=== PATIENT | male | born 1950 | race Caucasian/White ===

== ENCOUNTER 2019-01-22 10:06 | Emergency (ER) | payer OTHER ==
[~2019-01-22] VITALS: Ht 170.2 cm; Wt 49.4 kg
[2019-01-22] MEDS ORDERED: NS IV 1000 ML 1,000 ML IV SCH (11:13)
[2019-01-22 11:19] LABS: BASOPHILS % (AUTO) 0 % (0-10); EOSINOPHILS # (AUTO) 0.3 10^3/uL (0.0-0.3); EOSINOPHILS % (AUTO) 3 % (0-10); HEMATOCRIT 41 % (40-54); HEMOGLOBIN 13.5 G/DL (13.3-17.7); LYMPHOCYTES # (AUTO) 2.3 X 10^3 (1.0-4.0); LYMPHOCYTES % (AUTO) 21 % (12-44); MEAN CORPUSCULAR HEMOGLOBIN 31 PG (25-34); MEAN CORPUSCULAR HGB CONC 33 G/DL (32-36); MEAN CORPUSCULAR VOLUME 92 FL (80-99); MEAN PLATELET VOLUME 9.3 FL (7.4-10.4); MONOCYTES # (AUTO) 1.4 X 10^3 (0.0-1.0); MONOCYTES % (AUTO) 13 % (0-12); NEUTROPHILS # (AUTO) 7.2 X 10^3 (1.8-7.8); NEUTROPHILS % (AUTO) 64 % (42-75); PLATELET COUNT 269 10^3/uL (130-400); RED CELL DISTRIBUTION WIDTH 14.6 % (10.0-14.5); WHITE BLOOD COUNT 11.2 10^3/uL (4.3-11.0)
[2019-01-22] MEDS ORDERED: OMEP2.5S2 PO (11:20)
[2019-01-22] MEDS ORDERED: CREONC PO (11:20)
[2019-01-22] MEDS ORDERED: METF-399 PO (11:20)
[2019-01-22] MEDS ORDERED: GLIM4TAB PO (11:20)
[2019-01-22] MEDS ORDERED: HYDR4TAB49 PO (11:20)
[2019-01-22] MEDS ORDERED: ASPI-586 PO (11:20)
[2019-01-22] MEDS ORDERED: LISI-556 PO (11:20)
--- NOTE | 2019-01-22 11:22 | ED General ---
General Chief Complaint: Glucose Problems Stated Complaint: LOW BLOOD SUGAR Nursing Triage Note: Pt ambulates to Rm 10 with C/O hypoglycemia. Pt reports his BS was in the 40s this morning. Pt BS on arrival is 85. Pt is A&O x4. Nursing Sepsis Screen: No Definite Risk History of Present Illness Date Seen by Provider: Jan 22, 2019 Time Seen by Provider: 11:05 Initial Comments 69 year old male presents with hypoglycemia. He reports over the last 3-4 days he has been fighting bouts of hypo-and hyperglycemia. He is a type II diabetic but his been taking Levemir 15 units at bedtime for approximately 5-7 years. He was diagnosed with pancreatitis approximately 6 months ago and his weight has gone from 180-110 lbs, with no changes in his medications. He took her metformin 500 mg with dinner last night and his regular Levemir before bedtime. He did not take any of his morning medications today. He reports chronic vomiting related to pancreatitis, he denies any nausea or vomiting at this time. [facility] His blood sugar got too low with 41 this morning, he ate a young and beef burrito, several Rina mini candies, and drink orange juice. His Accu-Chek on admission was 84. Timing/Duration: 3-4 Days Severity: Moderate Associated Systoms: No Chest Pain; Cough (chronic with long-standing history of tobaccoism); No Diaphoresis, No Fever/Chills, No Headaches; Loss of Appetite, Malaise, Nausea/Vomiting; No Rash, No Seizure, No Shortness of Air, No Syncope; Weakness Allergies and Home Medications Allergies Coded Allergies: morphine (Unverified Allergy, Mild, 01/22/19) Home Medications Hydromorphone HCl 4 Mg Tablet, 4 MG PO DAILY PRN, (Reported) Lisinopril 5 Mg Tablet, 5 MG PO DAILY, (Reported) Metformin HCl 1,000 Mg Tablet, 1,000 MG PO BID WITH MEALS, (Reported) Omeprazole Magnesium 2.5 Mg Suspdr.pkt, 2.5 MG PO BID, (Reported) Patient Home Medication List Home Medication List Reviewed: Yes Review of Systems Review of Systems Constitutional: see HPI; No dizziness, No fever; malaise, weakness, weight loss EENTM: see HPI, no symptoms reported Respiratory: no symptoms reported, cough, phlegm (chronic) Cardiovascular: no symptoms reported, see HPI Gastrointestinal: no symptoms reported, see HPI, abdominal pain Genitourinary: no symptoms reported, see HPI Musculoskeletal: no symptoms reported, see HPI Skin: no symptoms reported, see HPI Psychiatric/Neurological: No Symptoms Reported, See HPI Hematologic/Lymphatic: No Symptoms Reported, See HPI Immunological/Allergic: no symptoms reported, see HPI All Other Systems Reviewed Negative Unless Noted: Yes Past Blyanfj-Cgppmf-Dyapvp Hx Past Med/Social Hx: Reviewed Nursing Past Med/Soc Hx Patient Social History Alcohol Use: Rarely Uses Recreational Drug Use: No Smoking Status: Current Everyday Smoker Type Used: Cigarettes Recent Foreign Travel: No Contact w/Someone Who Travel: No Recent Infectious Disease Expo: No Recent Hopitalizations: No Physical Abuse: No Sexual Abuse: No Mistreated: No Fear: No Seasonal Allergies Seasonal Allergies: No Past Medical History Surgeries: Yes (quad heart bypass 2003) Cardiac Respiratory: Yes Asthma, COPD Currently Using CPAP: No Currently Using BIPAP: No Cardiac: Yes Neurological: No Genitourinary: Yes Kidney Stones Gastrointestinal: No Musculoskeletal: No Endocrine: Yes Diabetes, Non-Insulin dep HEENT: No Cancer: No Psychosocial: No Integumentary: No Blood Disorders: No Physical Exam Vital Signs Vital Signs - First Documented 01/22/19 11:04 Temp 96.2 Pulse 91 Resp 20 B/P (MAP) 133/90 (104) Pulse Ox 100 O2 Delivery Room Air Capillary Refill : Less Than 3 Seconds Height, Weight, BMI Height: 5'7.00" Weight: 109lbs. oz. [id number]; BMI Method:Stated General Appearance: No Apparent Distress, Cachetic, Thin Eyes: Bilateral Eye Normal Inspection, Bilateral Eye PERRL, Bilateral Eye EOMI HEENT: PERRL/EOMI, TMs Normal, Normal ENT Inspection, Pharynx Normal, Other (oral mucosa pink and moist. Head normocephalic with symmetric facial movements, no drooping) Neck: Full Range of Motion, Normal Inspection, Non Tender, Supple Respiratory: Chest Non Tender, Lungs Clear, Normal Breath Sounds Cardiovascular: Regular Rate, Rhythm, No JVD, No Murmur, Normal Peripheral Pulses Gastrointestinal: Normal Bowel Sounds, Soft; No Distended, No Guarding, No Mass, No Rebound; Tenderness (generalized) Back: Normal Inspection, No CVA Tenderness, No Vertebral Tenderness Extremity: Normal Capillary Refill, Normal Inspection, Normal Range of Motion, Non Tender, No Calf Tenderness, Pedal Edema (1+, lower extremities) Neurologic/Psychiatric: Alert, Oriented x3, No Motor/Sensory Deficits, Normal Mood/Affect Progress/Results/Core Measures Suspected Sepsis Recent Fever Within 48 Hours: No Infection Criteria Present: None New/Unexplained Altered Menta: No Sepsis Screen: No Definite Risk SIRS Temperature:96.2 Pulse: 91 Respiratory Rate: 20 Laboratory Tests 01/22/19 10:46: White Blood Count 11.2H Blood Pressure 133 /90 Mean: 104 Laboratory Tests 01/22/19 10:46: Creatinine 1.01, Platelet Count 269, Total Bilirubin 0.3 Results/Orders Lab Results Laboratory Tests Test 01/22/19 10:32 01/22/19 10:46 01/22/19 13:30 Range/Units Glucometer 85 248 H 70-110 MG/DL White Blood Count 11.2 H 4.3-11.0 10^3/uL Red Blood Count 4.40 4.35-5.85 10^6/uL Hemoglobin 13.5 13.3-17.7 G/DL Hematocrit 41 40-54 % Mean Corpuscular Volume 92 80-99 FL Mean Corpuscular Hemoglobin 31 25-34 PG Mean Corpuscular Hemoglobin Concent 33 32-36 G/DL Red Cell Distribution Width 14.6 H 10.0-14.5 % Platelet Count 269 130-400 10^3/uL Mean Platelet Volume 9.3 7.4-10.4 FL Neutrophils (%) (Auto) 64 42-75 % Lymphocytes (%) (Auto) 21 12-44 % Monocytes (%) (Auto) 13 H 0-12 % Eosinophils (%) (Auto) 3 0-10 % Basophils (%) (Auto) 0 0-10 % Neutrophils # (Auto) 7.2 1.8-7.8 X 10^3 Lymphocytes # (Auto) 2.3 1.0-4.0 X 10^3 Monocytes # (Auto) 1.4 H 0.0-1.0 X 10^3 Eosinophils # (Auto) 0.3 0.0-0.3 10^3/uL Basophils # (Auto) 0.0 0.0-0.1 10^3/uL Sodium Level 136 135-145 MMOL/L Potassium Level 4.1 3.6-5.0 MMOL/L Chloride Level 102 98-107 MMOL/L Carbon Dioxide Level 30 21-32 MMOL/L Anion Gap 4 L 5-14 MMOL/L Blood Urea Nitrogen 10 7-18 MG/DL Creatinine 1.01 0.60-1.30 MG/DL Estimat Glomerular Filtration Rate > 60 BUN/Creatinine Ratio 10 Glucose Level 121 H 70-105 MG/DL Calcium Level 8.0 L 8.5-10.1 MG/DL Corrected Calcium 9.0 8.5-10.1 MG/DL Total Bilirubin 0.3 0.1-1.0 MG/DL Aspartate Amino Transf (AST/SGOT) 57 H 5-34 U/L Alanine Aminotransferase (ALT/SGPT) 53 0-55 U/L Alkaline Phosphatase 136 40-136 U/L Total Protein 5.2 L 6.4-8.2 GM/DL Albumin 2.8 L 3.2-4.5 GM/DL Amylase Level 35 25-125 U/L Lipase 4 L 8-78 U/L TSH [place] Testing 1.78 0.35-4.94 UIU/ML My Orders Orders - CHETAN GILBERT Accucheck Stat ONCE (01/22/19 11:03) Amylase (01/22/19 11:13) Cbc With Automated Diff (01/22/19 11:13) Comprehensive Metabolic Panel (01/22/19 11:13) Lipase (01/22/19 11:13) Thyroid Analyzer (01/22/19 11:13) Ed Iv/Invasive Line Start (01/22/19 11:13) Ns Iv 1000 Ml (Sodium Chloride 0.9%) (01/22/19 11:13) Chest Pa/Lat (2 View) (01/22/19 11:24) Accucheck Stat ONCE (01/22/19 13:26) Vital Signs/I&O 01/22/19 01/22/19 11:04 13:44 Temp 96.2 96.2 Pulse 91 86 Resp 20 18 B/P (MAP) 133/90 (104) 125/86 (99) Pulse Ox 100 100 O2 Delivery Room Air Room Air Capillary Refill : Less Than 3 Seconds Blood Pressure Mean: 104 Point of Care Testing Finger Stick Blood Glucose: 85 Blood Glucose Action Taken: A Jerry notified Progress Note : Time: 11:05 Progress Note Patient seen and evaluated, will obtain labs, chest x-ray and provide normal saline 1 L per IV. Will monitor glucose closely and give dextrose if needed. 1200 patient denies any new complaints, labs essentially been normal. IV has infused half of fluid. 1300 IV fluids infusing. No complaints. 1330 Accu-Chek 248. He has been unable to provide a urine sample, will cancel that order. Discharge instructions and return precautions have been reviewed with the patient and family. All questions answered. Diagnostic Imaging Diagonstic Imaging: Xray Plain Films/CT/US/NM/MRI: chest Comments NAME: SHERIN JOAQUIN [facility] REC#: [id number] PT STATUS: REG ER : 1950 PHYSICIAN: CHETAN GILBERT ADMIT DATE: 01/22/19/ER Draft Date of Exam:01/22/19 CHEST PA/LAT (2 VIEW) INDICATION: Hypoglycemia. TIME OF EXAM: 11:37 a.m. COMPARISON: No prior studies are available for comparison. FINDINGS: Changes of median sternotomy and CABG are noted. Calcified nodule in the left base is noted consistent with a granuloma. No infiltrates are seen. There is no effusion or pneumothorax. IMPRESSION: No acute cardiopulmonary process is detected. Dictated on workstation # [id number] Dict: 01/22/19 1141 Trans: 01/22/19 1147 [id number] Interpreted by: BUDDY JOAQUIN MD Electronically signed by: Reviewed: Reviewed by Me Departure Impression Primary Impression: Hypoglycemia associated with diabetes Disposition: 01 HOME, SELF-CARE Condition: Improved Departure-Patient Inst. Decision time for Depature: 13:25 Patient Instructions: Diabetes Type 2 (DC), Low Blood Sugar, Adult (DC) Add. Discharge Instructions: Stop Levemir, if blood sugars remain greater than 150, then resume Levemir but only 5 Units at bedtime. Continue taking your metformin and glyburide. Follow up with your primary care provider if things are not improving or worsen. Return to emergency department for new, urgent health care needs All discharge instructions reviewed with patient and/or family. Voiced understanding. CHETAN GILBERT Jan 22, 2019 11:22
[2019-01-22 11:33] LABS: ALANINE AMINOTRANSFERASE 53 U/L (0-55); ALBUMIN 2.8 GM/DL (3.2-4.5); ALKALINE PHOSPHATASE 136 U/L (40-136); AMYLASE 35 U/L (25-125); BILIRUBIN,TOTAL 0.3 MG/DL (0.1-1.0); BUN/CREATININE RATIO 10; CARBON DIOXIDE 30 MMOL/L (21-32); CHLORIDE 102 MMOL/L (98-107); CREATININE SERUM 1.01 MG/DL (0.60-1.30); GFR ESTIMATED > 60; GLUCOSE 121 MG/DL (70-105); LIPASE 4 U/L (8-78); POTASSIUM 4.1 MMOL/L (3.6-5.0); SODIUM 136 MMOL/L (135-145); TOTAL PROTEIN 5.2 GM/DL (6.4-8.2)
--- NOTE | 2019-01-22 11:48 | Diagnostic Imaging Report ---
INDICATION: Hypoglycemia. TIME OF EXAM: 11:37 a.m. COMPARISON: No prior studies are available for comparison. FINDINGS: Changes of median sternotomy and CABG are noted. Calcified nodule in the left base is noted consistent with a granuloma. No infiltrates are seen. There is no effusion or pneumothorax. IMPRESSION: No acute cardiopulmonary process is detected. Dictated by: Dictated on workstation # [id number]
[2019-01-22 11:52] LABS: TSH (THYROID ANALYZER) 1.78 UIU/ML (0.35-4.94)
--- NOTE | 2019-01-22 12:15 | NUR ---
This RN assisted pt to a standing position to attempt urination at this time.
[2019-01-22 13:44] VITALS: BP 125/86
== END 2019-01-22 13:44 | disposition home or self-care (01) ==
LOC: ER 10:07
DX: E11.649 Type 2 diabetes mellitus with hypoglycemia without coma (principal); J44.9 Chronic obstructive pulmonary disease, unspecified; F17.210 Nicotine dependence, cigarettes, uncomplicated; Z87.442 Personal history of urinary calculi; Z88.5 Allergy status to narcotic agent; Z79.84 Long term (current) use of oral hypoglycemic drugs; Z95.1 Presence of aortocoronary bypass graft
CPT/HCPCS: 36415; 71046; 80053; 82150; 82962; 83690; 84443; 85025; 96360

== ENCOUNTER 2019-03-16 13:10 | Inpatient (IN) | payer OTHER ==
[2019-03-16] VITALS (8 sets, daily range): BP systolic 83–209; BP diastolic 56–180
[~2019-03-16] VITALS: Ht 165.1 cm; Wt 49.5 kg
[~2019-03-16 13:10] MED LIST: ASPI-586 PO; CREONC PO; GLIM4TAB PO; HYDR4TAB49 PO; LISI-556 PO; METF-399 PO; OMEP2.5S2 PO
[2019-03-16] MEDS ORDERED: LACTATED RINGERS IV PRN (13:30)
--- NOTE | 2019-03-16 13:34 | NUR ---
CONSENT FOR CENTRAL LINE SIGNED
--- NOTE | 2019-03-16 13:35 | NUR ---
DR LOPEZ TO ROOM TO PLACE CENTRAL LINE
[2019-03-16 13:40] LABS: BASOPHILS % (AUTO) 1 % (0-10); EOSINOPHILS % (AUTO) 0 % (0-10); HEMATOCRIT 41 % (40-54); HEMOGLOBIN 13.3 G/DL (13.3-17.7); LYMPHOCYTES % (AUTO) 18 % (12-44); MEAN CORPUSCULAR HEMOGLOBIN 33 PG (25-34); MEAN CORPUSCULAR HGB CONC 32 G/DL (32-36); MEAN CORPUSCULAR VOLUME 102 FL (80-99); MEAN PLATELET VOLUME 10.5 FL (7.4-10.4); MONOCYTES # (AUTO) 0.3 X 10^3 (0.0-1.0); MONOCYTES % (AUTO) 6 % (0-12); NEUTROPHILS % (AUTO) 75 % (42-75); PLATELET COUNT 230 10^3/uL (130-400); RED CELL DISTRIBUTION WIDTH 16.3 % (10.0-14.5); WHITE BLOOD COUNT 5.4 10^3/uL (4.3-11.0)
[2019-03-16 14:01] LABS: BUN/CREATININE RATIO 16; CARBON DIOXIDE 15 MMOL/L (21-32); CHLORIDE 105 MMOL/L (98-107); CREATININE SERUM 1.19 MG/DL (0.60-1.30); POTASSIUM 4.2 MMOL/L (3.6-5.0); SODIUM 140 MMOL/L (135-145)
[2019-03-16 14:02] LABS: ALANINE AMINOTRANSFERASE 54 U/L (0-55); ALBUMIN 2.5 GM/DL (3.2-4.5); ALKALINE PHOSPHATASE 140 U/L (40-136); BILIRUBIN,TOTAL 2.6 MG/DL (0.1-1.0); CALCIUM 7.6 MG/DL (8.5-10.1); GFR ESTIMATED > 60; GLUCOSE 93 MG/DL (70-105); TOTAL PROTEIN 4.8 GM/DL (6.4-8.2)
[2019-03-16] MEDS ORDERED: NOREPINEPHRINE 4 MG/4 ML (LEVOPHED) AMP IV ONE (14:03)
[2019-03-16] MEDS ORDERED: NS (IVPB) 250 ML ONE (14:03)
--- NOTE | 2019-03-16 14:13 | NUR ---
to giana cerda
--- NOTE | 2019-03-16 14:13 | NUR ---
PCXR DONE CENTRAL LINE CLEARED BY DR BOYLE
[2019-03-16] MEDS ORDERED: fentaNYL INJECTION 100 MCG/2 ML AMP IVP STA (14:20)
--- NOTE | 2019-03-16 14:20 | ED General ---
General Chief Complaint: Neurological Problems Stated Complaint: BILAT LEG PAIN Nursing Triage Note: TO ROOM 08 WITH COMPLAINTS OF GENEARLIZED WEAKNESS, PAIN IN BILAT LOWER LEGS, DISCOLORATION IN BILAT LEG, WT LOSS, AND FREQUENT FALLS. Nursing Sepsis Screen: No Definite Risk Source of Information: Patient Exam Limitations: No Limitations History of Present Illness Date Seen by Provider: Mar 16, 2019 Time Seen by Provider: 13:20 Initial Comments Here with report of bilateral leg pain with multiple falls, bilateral leg pain and significant weakness. He has been increasingly sick over the last few days and did not want to come to the hospital. finally insisted today and he relented. He arrives incredibly weak and hypotensive. Breathing okay. Does have significant history of cardiac disease and CABG. [facility] Apparently was recently told that he had aspiration pneumonia. Details of that are limited. Timing/Duration: 2-3 Days, Getting Worse Severity: Moderate, Severe Modifying Factors: improves with Immobilization; worse with Movement Associated Systoms: No Chest Pain; Cough, Fever/Chills; No Loss of Appetite, No Nausea/Vomiting; Shortness of Air, Weakness Allergies and Home Medications Allergies Coded Allergies: morphine (Unverified Allergy, Mild, 01/22/19) Home Medications Hydromorphone HCl 4 Mg Tablet, 4 MG PO DAILY PRN, (Reported) Lisinopril 5 Mg Tablet, 5 MG PO DAILY, (Reported) Metformin HCl 1,000 Mg Tablet, 1,000 MG PO BID WITH MEALS, (Reported) Omeprazole Magnesium 2.5 Mg Suspdr.pkt, 2.5 MG PO BID, (Reported) Patient Home Medication List Home Medication List Reviewed: Yes Review of Systems Review of Systems Constitutional: see HPI, chills, fever, malaise, weakness EENTM: no symptoms reported Respiratory: cough, short of breath Cardiovascular: No chest pain, No edema Gastrointestinal: No abdominal pain, No nausea, No vomiting Genitourinary: no symptoms reported Musculoskeletal: joint pain, muscle pain, muscle stiffness, muscle weakness Skin: change in color; No lesions Psychiatric/Neurological: Denies Headache; Weakness All Other Systems Reviewed Negative Unless Noted: Yes Past Lilcsbi-Qsbtgh-Hgavzg Hx Past Med/Social Hx: Reviewed Nursing Past Med/Soc Hx Patient Social History Alcohol Use: Past History Recreational Drug Use: No Smoking Status: Current Everyday Smoker Type Used: Cigarettes Recent Foreign Travel: No Contact w/Someone Who Travel: No Recent Infectious Disease Expo: No Recent Hopitalizations: No Seasonal Allergies Seasonal Allergies: No Past Medical History Surgeries: Yes (quad heart bypass 2003) Cardiac Respiratory: Yes Asthma, COPD Currently Using CPAP: No Currently Using BIPAP: No Cardiac: Yes Neurological: No Genitourinary: Yes Kidney Stones Gastrointestinal: No Musculoskeletal: No Endocrine: Yes Diabetes, Non-Insulin dep HEENT: No Cancer: No Psychosocial: No Integumentary: No Blood Disorders: No Family Medical History Reviewed Nursing Family Hx No Pertinent Family Hx Physical Exam-Suspected Sepsis Physical Exam Vital Signs Vital Signs - First Documented 03/16/19 13:15 Temp 37.2 Pulse 116 Resp 16 B/P (MAP) 78/50 (59) Capillary Refill : Greater Than 3 Seconds Blood Pressure Mean: 59 Height, Weight, BMI Height: 5'7.00" Weight: 109lbs. oz. 49.189047cz; 18.00 BMI Method:Stated General Appearance: No Apparent Distress, WD/WN HEENT: PERRL/EOMI, Pharynx Normal Neck: Non Tender, Supple Respiratory: Lungs Clear, Normal Breath Sounds Cardiovascular: No Murmur, Tachycardia Gastrointestinal: Non Tender, Soft Back: Decreased Range of Motion; No Vertebral Tenderness Extremity: Slow Capillary Refill (approximately 5 seconds), Other (bilateral hip pain and pelvic pain) Neurologic/Psychiatric: Alert, Oriented x3 Skin: warm/dry, mottled, pallor; No rash, No ulcerations Focused Exam Lactate Level 03/16/19 14:30: Lactic Acid Level 6.38*H Lactic Acid Level Laboratory Tests Test 03/16/19 14:30 Lactic Acid Level 6.38 MMOL/L (0.50-2.00) *H Procedures/Interventions Lumen: triple Central Line Procedure: betadine prep, sterile drapes applied, sterile dressing applied Position: internal jugular (R) Anesthesia: Lidocaine Volume Anesthetic (ccs): 4 Complications: none Post Position: sutured, good blood return, position confirmed w/ CXR Central line placed via ultrasound guidance to the right IJ. Tolerated procedure well with no complications. Post chest x-ray shows central line in good position. No pneumothorax Progress/Results/Core Measures Suspected Sepsis Recent Fever Within 48 Hours: No Infection Criteria Present: Suspected New Infection New/Unexplained Altered Menta: No Sepsis Screen: No Definite Risk SIRS Temperature: Pulse: 116 Respiratory Rate: 16 Laboratory Tests 03/16/19 13:32: White Blood Count 5.4 Blood Pressure 78 /50 Mean: 59 03/16/19 14:30: Lactic Acid Level 6.38*H Laboratory Tests 03/16/19 13:32: Creatinine 1.19, Platelet Count 230, Total Bilirubin 2.6H 03/16/19 15:30: Results/Orders Lab Results Laboratory Tests Test 03/16/19 13:32 03/16/19 14:30 03/16/19 15:30 Range/Units White Blood Count 5.4 4.3-11.0 10^3/uL Red Blood Count 4.07 L 4.35-5.85 10^6/uL Hemoglobin 13.3 13.3-17.7 G/DL Hematocrit 41 40-54 % Mean Corpuscular Volume 102 H 80-99 FL Mean Corpuscular Hemoglobin 33 25-34 PG Mean Corpuscular Hemoglobin Concent 32 32-36 G/DL Red Cell Distribution Width 16.3 H 10.0-14.5 % Platelet Count 230 130-400 10^3/uL Mean Platelet Volume 10.5 H 7.4-10.4 FL Neutrophils (%) (Auto) 75 42-75 % Lymphocytes (%) (Auto) 18 12-44 % Monocytes (%) (Auto) 6 0-12 % Eosinophils (%) (Auto) 0 0-10 % Basophils (%) (Auto) 1 0-10 % Neutrophils # (Auto) 4.0 1.8-7.8 X 10^3 Lymphocytes # (Auto) 1.0 1.0-4.0 X 10^3 Monocytes # (Auto) 0.3 0.0-1.0 X 10^3 Eosinophils # (Auto) 0.0 0.0-0.3 10^3/uL Basophils # (Auto) 0.0 0.0-0.1 10^3/uL Neutrophils % (Manual) 51 % Lymphocytes % (Manual) 21 % Monocytes % (Manual) 3 % Eosinophils % (Manual) 3 % Band Neutrophils 25 % Poikilocytosis MODERATE Stomatocytes MODERATE Sodium Level 140 135-145 MMOL/L Potassium Level 4.2 3.6-5.0 MMOL/L Chloride Level 105 98-107 MMOL/L Carbon Dioxide Level 15 L 21-32 MMOL/L Anion Gap 20 H 5-14 MMOL/L Blood Urea Nitrogen 19 H 7-18 MG/DL Creatinine 1.19 0.60-1.30 MG/DL Estimat Glomerular Filtration Rate > 60 BUN/Creatinine Ratio 16 Glucose Level 93 70-105 MG/DL Calcium Level 7.6 L 8.5-10.1 MG/DL Corrected Calcium 8.8 8.5-10.1 MG/DL Total Bilirubin 2.6 H 0.1-1.0 MG/DL Aspartate Amino Transf (AST/SGOT) 74 H 5-34 U/L Alanine Aminotransferase (ALT/SGPT) 54 0-55 U/L Alkaline Phosphatase 140 H 40-136 U/L Total Protein 4.8 L 6.4-8.2 GM/DL Albumin 2.5 L 3.2-4.5 GM/DL Urine Color YELLOW Urine Clarity CLEAR Urine pH 5 5-9 Urine Specific [place] 1.020 1.016-1.022 Urine Protein 2+ H NEGATIVE Urine Glucose (UA) NEGATIVE NEGATIVE Urine Ketones 1+ H NEGATIVE Urine Nitrite POSITIVE H NEGATIVE Urine Bilirubin 2+ H NEGATIVE Urine Urobilinogen 8 H NORMAL MG/DL Urine Leukocyte Esterase 1+ H NEGATIVE Urine RBC (Auto) 1+ H NEGATIVE Urine RBC RARE /HPF Urine WBC 2-5 /HPF Urine Squamous Epithelial Cells 0-2 /HPF Urine Renal Epithelial Cells 0-2 /HPF Urine Crystals NONE /LPF Urine Bacteria MODERATE H /HPF Urine Casts NONE /LPF Urine Mucus SMALL H /LPF Urine Culture Indicated YES Lactic Acid Level 6.38 *H 0.50-2.00 MMOL/L My Orders Orders - YURIDIA BOYLE MD Cbc With Automated Diff (03/16/19 13:29) Comprehensive Metabolic Panel (03/16/19 13:29) Blood Culture (03/16/19 13:29) Sputum Culture (03/16/19 13:29) Urinalysis (03/16/19 13:29) Urine Culture (03/16/19 13:29) Protime With Inr (03/16/19 13:29) Partial Thromboplastin Time (03/16/19 13:29) Chest 1 View, Ap/Pa Only (03/16/19 13:29) Ed Iv/Invasive Line Start (03/16/19 13:29) Ed Iv/Invasive Line Start (03/16/19 13:29) Vital Signs Adult Sepsis Patie Q15M (03/16/19 13:29) O2 (03/16/19 13:29) Remove Rings In Anticipation O (03/16/19 13:29) Lactic Acid Analyzer (03/16/19 13:29) Lactated Ringers (Lr 1000 Ml Iv Solution (03/16/19 13:30) Norepinephrine (Levophed) (03/16/19 14:03) Ns (Ivpb) (Sodium Chloride 0.9%) (03/16/19 14:03) Pelvis (03/16/19 14:10) Fentanyl Injection (Sublimaze Injection (03/16/19 14:20) Catheter(Urinary) Insert & Ass 03,15 (03/16/19 14:20) Norepinephrine (Levophed) (03/16/19 14:30) Ct Head Wo (03/16/19 14:31) Ekg Tracing (03/16/19 14:42) Manual Differential (03/16/19 13:32) Ceftriaxone For Iv Use (Rocephin For I (03/16/19 15:15) Hydromorphone Injection (Dilaudid Inject (03/16/19 15:30) Medications Given in ED Current Medications Medications Dose Ordered Sig/[place] Route Start Time Stop Time Status Last Admin Dose Admin Ceftriaxone Sodium 1000 mg/ Sterile Water 10 ml @ 200 mls/hr ONCE ONCE IV 03/16/19 15:15 03/16/19 15:17 DC 03/16/19 15:34 200 MLS/HR Hydromorphone HCl 1 mg ONCE ONCE IV 03/16/19 15:30 03/16/19 15:31 DC 03/16/19 15:30 1 MG Lactated Ringer's 1,469.64 ml @ 1,469.64 mls/hr PRN PRN IV 03/16/19 13:30 03/16/19 13:41 1,469.64 MLS/HR Vital Signs/I&O 03/16/19 13:15 Temp 37.2 Pulse 116 Resp 16 B/P (MAP) 78/50 (59) Capillary Refill : Greater Than 3 Seconds Blood Pressure Mean: 59 Progress Note : Progress Note Seen and evaluated. Patient very hypotensive on arrival. Sepsis protocol initiat ed and IV attempts were made. Elected to go directly to Central line placement. Consent signed and on the chart. In the interim they were able to get a line to the left arm and we did initiate the 30 mL/kg bolus of LR which calculates to just under 1500 mL. Anticipate 2 L bolus. 1420: Central line placed and in good position. Fentanyl 25 g IV ordered. We will additionally get CT of the head. We went ahead and initiated Levophed due to persistent hypotension despite fluid challenge that is ongoing. Patient is complaining of significant pain to his upper legs and pelvic area. No acute fractures noted on pelvic x-ray. Pending labs. Anticipate admission to the ICU. 1511: I discussed the case with Dr. Callejas. Patient does have grossly elevated lactic acid greater than 6 and nitrite- positive urinary tract infection. We will initiate Rocephin 1 g IV. Levophed was initiated. He is markedly improved with his blood pressure greater than 90 systolic since. Fentanyl did not touch his pain. Dilaudid 1 mg IV ordered as he is normally on Dilaudid 4 mg when necessary daily. This did greatly improve his comfort. Resting peacefully now. Admit, inpatient status. Patient family agree with plan. 1558: I attest a focused exam at this time. Family did bring to my attention other concerns that he has had significant weight loss over the last year and is not able to gain weight at all. He was a very heavy smoker for many years at 3 packs a day plus. The did mention that there was some concern about throat cancer in the past or she had concern of throat cancer in the past. Either way, patient may need further workup related to possible cancer etiology for his weight loss as his stability improves. She will also discussed this with inpatient team ECG Initial ECG Impression Date: Mar 16, 2019 Initial ECG Impression Time: 12:11 Initial ECG Rate: 124 Initial ECG Rhythm: S.Tach Comment Sinus tachycardia with low voltage. No evidence of ST elevation HI. No previous available for comparison. Interpreted by me. Normal axis noted. Diagnostic Imaging Diagonstic Imaging: CT Plain Films/CT/US/NM/MRI: head Comments NAME: SHERIN JOAQUIN [facility] REC#: [id number] PT STATUS: REG ER : 1950 PHYSICIAN: YURIDIA BOYLE MD ADMIT DATE: 03/16/19/ER Signed Date of Exam: 03/16/19 CT HEAD WO PROCEDURE: CT head without contrast. TECHNIQUE: Multiple contiguous axial images were obtained through the brain without the use of intravenous contrast. Auto Exposure Controls were utilized during the CT exam to meet ALARA standards for radiation dose reduction. INDICATION: Generalized weakness. Frequent falls. FINDINGS: The ventricles are normal in size, shape and position. There is mild cortical atrophy. There is no acute parenchymal hemorrhage, edema or mass. There is no extra-axial mass or hemorrhage. There is no acute bony abnormality. IMPRESSION: No acute abnormality is seen. Dictated by: Dictated on workstation # [id number] Dict: 03/16/19 1505 Trans: 03/16/19 151 Interpreted by: SHERIN BARRIOS MD Electronically signed by: SHERIN BARRIOS MD 03/16/19 151 Diagonstic Imaging: Xray Plain Films/CT/US/NM/MRI: pelvis Comments NAME: SHERIN JOAQUIN MED REC#: [id number] PT STATUS: REG ER : 1950 PHYSICIAN: YURIDIA BOYLE MD ADMIT DATE: 03/16/19/ER Signed Date of Exam: 03/16/19 PELVIS INDICATION: Fall. COMPARISON: None available. FINDINGS: No traumatic diastases in the symphysis pubis or SI joints. No dislocation of the hip. Severe degenerative arthritis of the left hip is present. No acute displaced fracture by radiography. IMPRESSION: No fracture or traumatic malalignment in the pelvis by radiography. Dictated by: Dictated on workstation # [id number] Dict: 03/16/19 1436 Trans: 03/16/19 1526 Interpreted by: FRANKLYN SIDHU MD Electronically signed by: FRANKLYN SIDHU MD 03/16/19 152 Diagonstic Imaging: Xray Plain Films/CT/US/NM/MRI: chest Comments NAME: SHERIN JOAQUIN MED REC#: [id number] PT STATUS: REG ER : 1950 PHYSICIAN: YURIDIA BOYLE MD ADMIT DATE: 03/16/19/ER Signed Date of Exam: 03/16/19 CHEST 1 VIEW, AP/PA ONLY CHEST 1 VIEW, AP/PA ONLY Indication: Generalized weakness. Comparison: 01/22/2019 Findings: Stable calcified pulmonary granuloma in the left lung base. No focal airspace disease in the visualized lungs. Please note that the posterior lower lobes are poorly evaluated by portable radiography. No pleural effusion or pneumothorax. Normal cardiomediastinal silhouette. Right IJ central venous catheter has tip terminating in the lower SVC near the superior cavoatrial junction. Impression: 1. No acute cardiopulmonary process by portable radiography. 2. Well-positioned right IJ central venous catheter. Dictated by: Dictated on workstation # [id number] Dict: 03/16/19 1433 Trans: 03/16/19 1525 Interpreted by: FRANKLYN SIDHU MD Electronically signed by: FRANKLYN SIDHU MD 03/16/19 1525 Reviewed: Reviewed by Wa Departure Communication (Admissions) Time/Spoke to Admitting Phy: 15:11 Impression Primary Impression: Septic shock Disposition: ADMITTED INPATIENT Condition: Critical Admissions Decision to Admit Reason: Admit from ER (General) Decision to Admit/Date: Mar 16, 2019 Time/Decision to Admit Time: 15:11 Departure-Patient Inst. Referrals: NO,LOCAL PHYSICIAN (PCP/Family) Primary Care Physician YURIDIA BOYLE MD Mar 16, 2019 14:20
--- NOTE | 2019-03-16 14:30 | NUR ---
DOMÍNGUEZ CATH PLACED 16F
[2019-03-16] MEDS: NOREPINEPHRINE 4 MG in NS (IVPB) 250 ML IV SCH ×2 (14:33→14:34)
--- NOTE | 2019-03-16 14:37 | Diagnostic Imaging Report ---
CHEST 1 VIEW, AP/PA ONLY Indication: Generalized weakness. Comparison: 01/22/2019 Findings: Stable calcified pulmonary granuloma in the left lung base. No focal airspace disease in the visualized lungs. Please note that the posterior lower lobes are poorly evaluated by portable radiography. No pleural effusion or pneumothorax. Normal cardiomediastinal silhouette. Right IJ central venous catheter has tip terminating in the lower SVC near the superior cavoatrial junction. Impression: 1. No acute cardiopulmonary process by portable radiography. 2. Well-positioned right IJ central venous catheter. Dictated by: Dictated on workstation # [id number]
--- NOTE | 2019-03-16 14:37 | NUR ---
B/P 110/84 HR125 SAO2 100% 2L
--- NOTE | 2019-03-16 14:38 | Diagnostic Imaging Report ---
INDICATION: Fall. COMPARISON: None available. FINDINGS: No traumatic diastases in the symphysis pubis or SI joints. No dislocation of the hip. Severe degenerative arthritis of the left hip is present. No acute displaced fracture by radiography. IMPRESSION: No fracture or traumatic malalignment in the pelvis by radiography. Dictated by: Dictated on workstation # [id number]
[2019-03-16 14:46] LABS: CLARITY,URINE CLEAR; COLOR,URINE YELLOW; GLUCOSE, URINE (UA) NEGATIVE (NEGATIVE); KETONES,URINE 1+ (NEGATIVE); LEUKOCYTE ESTERASE ,URINE 1+ (NEGATIVE); NITRITE,URINE POSITIVE (NEGATIVE); PH,URINE 5 (5-9); PROTEIN,URINE 2+ (NEGATIVE)
[2019-03-16 14:48] LABS: BAND NEUTROPHILS 25 %; EOSINOPHILS % (MANUAL) 3 %; LYMPHOCYTES % (MANUAL) 21 %; MONOCYTES % (MANUAL) 3 %; NEUTROPHILS % (MANUAL) 51 %; POIKILOCYTOSIS MODERATE
[2019-03-16 14:49] LABS: STOMATOCYTES MODERATE
--- NOTE | 2019-03-16 14:53 | NUR ---
TO CT ACCOMPIED BY HUGH MYERS
--- NOTE | 2019-03-16 15:06 | Diagnostic Imaging Report ---
PROCEDURE: CT head without contrast. TECHNIQUE: Multiple contiguous axial images were obtained through the brain without the use of intravenous contrast. Auto Exposure Controls were utilized during the CT exam to meet ALARA standards for radiation dose reduction. INDICATION: Generalized weakness. Frequent falls. FINDINGS: The ventricles are normal in size, shape and position. There is mild cortical atrophy. There is no acute parenchymal hemorrhage, edema or mass. There is no extra-axial mass or hemorrhage. There is no acute bony abnormality. IMPRESSION: No acute abnormality is seen. Dictated by: Dictated on workstation # [id number]
--- NOTE | 2019-03-16 15:07 | NUR ---
BACK FROM CT
[2019-03-16 15:09] LABS: RBC,URINE RARE /HPF
[2019-03-16 15:10] LABS: BACTERIA,URINE MODERATE /HPF; RENAL EPITHELIAL CELLS,URINE 0-2 /HPF; SQUAMOUS EPITHELIAL CELL,UR 0-2 /HPF
[2019-03-16] MEDS ORDERED: cefTRIAXone FOR IV USE 1,000 MG in WATER (STERILE) FOR INJECTION 10 ML IV ONE (15:15)
[2019-03-16] MEDS ORDERED: HYDROmorphone 2 MG/ML VIAL (DILAUDID) IV ONE (15:30)
--- NOTE | 2019-03-16 15:34 | NUR ---
1ST LITER OF LR IN
--- NOTE | 2019-03-16 15:44 | NUR ---
MONITOR SHOWS ST HR 117 SAO2 100% 3LNC 123/98
[2019-03-16 15:47] LABS: INR 1.6 (0.8-1.4); PROTHROMBIN TIME PATIENT 20.1 SEC (12.2-14.7)
--- NOTE | 2019-03-16 15:58 | NUR ---
CALLED TO GIVE REPORT NURSE DID NOT ANSWER PHONE
--- NOTE | 2019-03-16 15:59 | NUR ---
HR 117 B/P 103 60
[2019-03-16] MEDS ORDERED: NOREPINEPHRINE 4 MG in NS (IVPB) 250 ML IV SCH (16:29)
[2019-03-16] MEDS ORDERED: EPINEPHrine 1 MG INJECTION 2 MG in NS (IVPB) 250 ML IV SCH (16:30)
[2019-03-16] MEDS: LACTATED RINGERS 1,000 ML IV SCH ×3 (16:40→23:23)
[2019-03-16] MEDS: VASOPRESSIN INJECTION 20 UNIT in NORMAL SALINE 100 ML IV SCH ×2 (16:40→21:33)
[2019-03-16] MEDS ORDERED: CATHETER FLUSH 10 ML SYR IV PRN (16:45)
[2019-03-16] MEDS ORDERED: ONDANSETRON 4 MG/2 ML (SDV) Z0FRAN IV PRN (16:45)
[2019-03-16] MEDS ORDERED: HYDROmorphone 2 MG/ML VIAL (DILAUDID) IV PRN (16:45)
[2019-03-16] MEDS ORDERED: ACETAMINOPHEN 120 MG SUPP (TYLENOL) PR ONE (17:00)
[2019-03-16] MEDS ORDERED: ACETAMINOPHEN 325 MG SUPP (TYLENOL) PR PRN (17:00)
[2019-03-16] MEDS ORDERED: ACETAMINOPHEN 650 MG SUPP (TYLENOL) ONE (17:04)
[2019-03-16 17:09] LABS: ABG BASE EXCESS -6.3 MMOL/L (-2.5-2.5); ABG OXYGEN SATURATION 94 % (94-100); ABG PCO2 31 MMHG (35-45); ABG PH 7.38 (7.37-7.43); ABG PO2 73 MMHG (79-93); ABG TCO2 18.5 MMOL/L (21.0-31.0); ALLENS TEST YES-POS; INSPIRED O2 3 L; PATIENT TEMP 37.9; VENTILATOR NO
[2019-03-16] MEDS: LACTATED RINGERS 500 ML IV SCH ×2 (17:30→19:35)
--- NOTE | 2019-03-16 17:30 | NUR ---
RECEIVED ORDER FROM [facility] TO SWITCH LEVOPHED TO NEOSINEPHRINE. DR. FLORES IN ROOM, STATED TO CONTINUE ON LEVOPHED.
--- NOTE | 2019-03-16 17:32 | History & Physical-Hospitalist ---
History of Present Illness HPI/Chief Complaint Pt is 69yoCM who presented to the ER due to leg pain and weakness. He is quite lethargic and responds only to painful stimuli. He is unable to provide me any history. His who is an LEAD PROGRAMMER ANALYST, daughter, and grandson are at the bedside to provide the history. reports he has not been feeling well for the psat few days but when she got home at 330AM this morning she noticed he was very weak, febrile, and overall looked worse. She reports it took both herself and her grandson to move him today and he had pretty significant pain. She checked his vitals and he had a temperature of 100.4, a pulse of 47, and his BP was 104/60. He did take him BP medicine this morning. She has noticed mottled in his feet but notices now that that has spread to his knees. This acute illness is in the setting of him lose weight over the past few months and undergoing a workup for aspiration and a mass on his neck. He also has chronic pancreatitis. He had not complained of abdominal pain to her. She has noticed looser carol colored stools but today thought it was more formed. Source: patient Date Seen 03/16/19 Attending Physician Alondra Callejas MD PCP No,Local Physician Referring Physician Date of Admission Mar 16, 2019 at 15:53 Home Medications & Allergies Home Medications Reviewed patient Home Medication Reconciliation performed by pharmacy medication reconciliations sterilization technician and/or nursing. Patients Allergies have been reviewed. Allergies Allergies Coded Allergies morphine (Unverified Allergy, Mild, 01/22/19) Past Oksxycf-Ogcpfu-Jrjiqx Hx Past Med/Social Hx: Reviewed Nursing Past Med/Soc Hx Patient Social History Marrital Status: Alcohol Use: Past History Recreational Drug Use: No Smoking Status: Current Everyday Smoker Type Used: Cigarettes Recent Foreign Travel: No Contact w/other who traveled: No Recent Hopitalizations: No Recent Infectious Disease Expo: No Immunizations Up To Date Date of Pneumonia Vaccine: Nov 17, 2016 Date of Influenza Vaccine: Feb 24, 2019 Seasonal Allergies Seasonal Allergies: No Past Medical History Surgeries: Cardiac, CABG, Coronary Stent, Pancreatic Respiratory: COPD, Pneumonia Currently Using CPAP: No Currently Using BIPAP: No Cardiac: Chronic Edema/Swelling, Coronary Artery Disease, Hypertension Genitourinary: Kidney Stones Musculoskeletal: Chronic Back Pain Endocrine: Diabetes, Non-Insulin dep History of Blood Disorders: No Family History Reviewed Nursing Family Hx No Pertinent Family Hx Review of Systems ROS-Unable to Obtain: due to lethargy, see HPI for history from Physical Exam Physical Exam Vital Signs Vital Signs - First Documented 03/16/19 03/16/19 13:15 16:27 Temp 37.2 Pulse 116 Resp 16 B/P (MAP) 78/50 (59) Pulse Ox 100 O2 Delivery Nasal Cannula O2 Flow Rate 3.00 Capillary Refill : Greater Than 3 Seconds Height, Weight, BMI Height: 5'7.00" Weight: 109lbs. oz. 49.236167oh; 18.00 BMI Method:Stated General Appearance: Chronically ill, Cachetic, Moderate Distress HEENT: No Scleral Icterus (L), No Scleral Icterus (R); Other (dry mucus membranes) Neck: Non Tender; No Lymphadenopathy (L), No Lymphadenopathy (R); Other (central line in place on right) Respiratory: Chest Non Tender, Rhonci (right base); No Wheezing; Other (tachypnea ) Cardiovascular: No JVD, No Murmur, Tachycardia Gastrointestinal: Normal Bowel Sounds; No Distended; Guarding; No Rebound; Tenderness (diffuse) Genital/Rectal: Other (ceja in place, scant urine) Extremity: Pedal Edema, Slow Capillary Refill, Swelling (2+ to just below calves) Neurologic/Psychiatric: Other (arouses to pain and speaks, otherwise will open eyes to verbal command but lethargic) Skin: Mottled; No Petechia, No Rash; Other (warm to touch) Results Results/Procedures Labs Laboratory Tests 03/16/19 13:32 Patient resulted labs reviewed. Imaging: Reviewed Imaging Report Assessment/Plan Admission Diagnosis Septic Shock Admission Status: Inpatient Order (span 2 midnights) Reason for Inpatient Admission: On pressors Assessment and Plan Septic Shock UTI Febrile, tachycardia with Lactic acidosis Received 30cc/kg bolus Focus exam done Cultures obtained Continue Rocephin Continue on Levophed CAD s/p CABG No chest pain On ASA, Metoprolol at home Echo COPD Currently off inhalers Pulm consulted, appreciate recs HTN Hold home meds Chronic Pancreatitis Chronic Pain Creon when can PO IV Dilaudid for pain Discussed with family need to balance sedation with respiratory status if he remains full code Discussed goals of care with family. They would like to continue with Full Code status per his wishes. is tearful and acknowledging gravity of illness. Critical Care Critically Ill Patient Diagnosis/Problems Diagnosis/Problems (1) CAD (coronary artery disease) Qualifiers: Coronary Disease-Associated Artery/Lesion type: bypass graft [place] vs. transplanted heart: [place] heart Associated angina: without angina Qualified Codes: I25.810 - Atherosclerosis of coronary artery bypass graft(s) without angina pectoris (2) COPD (chronic obstructive pulmonary disease) (3) Counseling regarding end of life decision making (4) Essential (primary) hypertension (5) Non-insulin dependent type 2 diabetes mellitus (6) Tobacco abuse (7) UTI (urinary tract infection) (8) Septic shock Status: Acute (9) Chronic pancreatitis (10) Chronic pain ALONDRA CALLEJAS MD Mar 16, 2019 17:32
[2019-03-16] MEDS ORDERED: NS IV 1000 ML 1,000 ML IV SCH (18:15)
[2019-03-16] MEDS ORDERED: NS IV 1000 ML 1,000 ML ONE (19:36)
[2019-03-16] MEDS ORDERED: LACTATED RINGERS 500 ML IV ONE (20:15)
[2019-03-16] MEDS: PHENYLEPHRINE 10 MG/NS 250 ML IV SCH ×4 (20:46→22:36)
[2019-03-16] MEDS ORDERED: NS (IVPB) 100 ML ONE (21:14)
[2019-03-16] MEDS ORDERED: PHENYLEPHRINE INJ 10 MG/ML (FOR DRIP KITS ONLY) ONE ×3 (23:40→23:45)
[2019-03-17] VITALS (12 sets, daily range): BP systolic 81–122; BP diastolic 52–96
--- NOTE | 2019-03-17 00:23 | NUR ---
UPDATED E-ICU OF PT URINE OUTPUT 15-25ML/HR, INCREASED PERIPHERAL EDEMA, WET COUGH AND PT REPORTING HAVING DIFFICULTY BREATHING. ALSO INQUIRED ABOUT PAIN MEDICATION AND HYPOTENSION. SEE ORDER HX
[2019-03-17] MEDS: LACTATED RINGERS 1,000 ML IV SCH ×2 (00:42→07:23)
[2019-03-17] MEDS: HYDROmorphone 2 MG/ML VIAL (DILAUDID) IV PRN ×3 (00:42→06:10)
[2019-03-17] MEDS: PHENYLEPHRINE 10 MG/NS 250 ML IV SCH ×10 (01:10→04:53)
[2019-03-17] MEDS ORDERED: RT-ALBUTEROL/IPRATROPIUM 3 ML (DUONEB) VIAL ONE (01:16)
[2019-03-17] MEDS: RT-ALBUTEROL/IPRATROPIUM 3 ML (DUONEB) VIAL IH SCH ×4 (02:10→10:33)
[2019-03-17] MEDS ORDERED: NOREPINEPHRINE 4 MG in NS (IVPB) 250 ML IV SCH (02:45)
[2019-03-17] MEDS ORDERED: NS (IVPB) 250 ML ONE ×3 (03:09→05:07)
[2019-03-17 03:33] LABS: BASOPHILS % (AUTO) 0 % (0-10); EOSINOPHILS % (AUTO) 0 % (0-10); HEMATOCRIT 29 % (40-54); HEMOGLOBIN 9.6 G/DL (13.3-17.7); LYMPHOCYTES # (AUTO) 0.6 X 10^3 (1.0-4.0); LYMPHOCYTES % (AUTO) 5 % (12-44); MEAN CORPUSCULAR HEMOGLOBIN 32 PG (25-34); MEAN CORPUSCULAR HGB CONC 34 G/DL (32-36); MEAN CORPUSCULAR VOLUME 95 FL (80-99); MEAN PLATELET VOLUME 10.2 FL (7.4-10.4); MONOCYTES # (AUTO) 0.5 X 10^3 (0.0-1.0); MONOCYTES % (AUTO) 4 % (0-12); NEUTROPHILS # (AUTO) 10.6 X 10^3 (1.8-7.8); NEUTROPHILS % (AUTO) 91 % (42-75); PLATELET COUNT 171 10^3/uL (130-400); RED CELL DISTRIBUTION WIDTH 15.6 % (10.0-14.5); WHITE BLOOD COUNT 11.7 10^3/uL (4.3-11.0)
[2019-03-17] MEDS ORDERED: DEXTROSE 50% 50 ML (IMS) SYR IV ONE (04:00)
[2019-03-17 04:02] LABS: ALANINE AMINOTRANSFERASE 37 U/L (0-55); ALBUMIN 1.7 GM/DL (3.2-4.5); ALKALINE PHOSPHATASE 86 U/L (40-136); BILIRUBIN,TOTAL 1.8 MG/DL (0.1-1.0); BUN/CREATININE RATIO 18; CALCIUM 6.7 MG/DL (8.5-10.1); CARBON DIOXIDE 17 MMOL/L (21-32); CHLORIDE 109 MMOL/L (98-107); CREATININE SERUM 1.05 MG/DL (0.60-1.30); GFR ESTIMATED > 60; POTASSIUM 3.5 MMOL/L (3.6-5.0); SODIUM 140 MMOL/L (135-145); TOTAL PROTEIN 3.2 GM/DL (6.4-8.2)
[2019-03-17 04:05] LABS: GLUCOSE 49 MG/DL (70-105); MAGNESIUM 0.9 MG/DL (1.6-2.4)
[2019-03-17] MEDS ORDERED: DEXTROSE 50% 50 ML (IMS) SYR ONE (04:05)
[2019-03-17] MEDS: MAGNESIUM 1 GM/D5W 100 ML IVPB IV SCH ×2 (04:45→05:45)
[2019-03-17] MEDS: POTASSIUM CL 10 MEQ/50 ML IVPB (PRE-MIX) IV SCH ×2 (04:45→05:45)
[2019-03-17 05:00] LABS: BILIRUBIN,URINE 2+ (NEGATIVE)
[2019-03-17] MEDS ORDERED: NS (IVPB) 100 ML ONE ×2 (05:05→06:17)
[2019-03-17] MEDS: VASOPRESSIN INJECTION 20 UNIT in NORMAL SALINE 100 ML IV SCH (05:13)
--- NOTE | 2019-03-17 05:42 | Pulmonary Consultation ---
History of Present Illness History of Present Illness Date of Consultation 03/17/19 05:37 Time Seen by Provider: 05:39 Date of Admission History of Present Illness 69yo Pt is 69yoCM who presented to the ER due to leg pain and weakness. He is quite lethargic and responds only to painful stimuli. He is unable to provide me any history. His who is an HEAD RESIDENT, daughter, and grandson are at the bedside to provide the history. reports he has not been feeling well for the psat few days but when she got home at 330AM this morning she noticed he was very weak, febrile, and overall looked worse. She reports it took both herself and her grandson to move him today and he had pretty significant pain. She checked his vitals and he had a temperature of 100.4, a pulse of 47, and his BP was 104/60. He did take him BP medicine this morning. She has noticed mottled in his feet but notices now that that has spread to his knees. This acute illness is in the setting of him lose weight over the past few months and undergoing a workup for aspiration and a mass on his neck. He also has chronic pancreatitis. He had not complained of abdominal pain to her. She has noticed looser carol colored stools but today thought it was more formed. Allergies and Home Medications Allergies Coded Allergies: morphine (Unverified Allergy, Mild, takes Hydromorphone at home, 03/17/19) Home Medications Hydromorphone HCl 4 Mg Tablet, 4 MG PO DAILY PRN, (Reported) Lisinopril 5 Mg Tablet, 5 MG PO DAILY, (Reported) Metformin HCl 1,000 Mg Tablet, 1,000 MG PO BID WITH MEALS, (Reported) Omeprazole Magnesium 2.5 Mg Suspdr.pkt, 2.5 MG PO BID, (Reported) Past Tgccxbe-Peevjn-Njbzwn Hx Past Med/Social Hx: Reviewed Nursing Past Med/Soc Hx Patient Social History Alcohol Use: Past History Recreational Drug Use: No Smoking Status: Current Everyday Smoker Type Used: Cigarettes Recent Foreign Travel: No Contact w/Someone Who Travel: No Recent Infectious Disease Expo: No Recent Hopitalizations: No Immunizations Up To Date Date of Pneumonia Vaccine: Nov 17, 2016 Date of Influenza Vaccine: Feb 24, 2019 Seasonal Allergies Seasonal Allergies: No Past Medical History Surgeries: Yes (quad heart bypass 2003) Cardiac, CABG, Coronary Stent, Pancreatic Respiratory: Yes Asthma, COPD Currently Using CPAP: No Currently Using BIPAP: No Cardiac: Yes Chronic Edema/Swelling, Coronary Artery Disease, Hypertension Neurological: No Genitourinary: Yes Kidney Stones Gastrointestinal: No Musculoskeletal: No Chronic Back Pain Endocrine: Yes Diabetes, Non-Insulin dep HEENT: No Cancer: No Psychosocial: No Integumentary: No Blood Disorders: No Family Medical History Reviewed Nursing Family Hx No Pertinent Family Hx Sepsis Event Evaluation Height, Weight, BMI Height: 5'7.00" Weight: 109lbs. oz. 49.972381cq; 18.00 BMI Method:Stated Exam Exam Vital Signs Date Time Temp Pulse Resp B/P (MAP) Pulse Ox O2 Delivery O2 Flow Rate FiO2 03/17/19 04:00 Nasal Cannula 3.00 03/17/19 03:38 36.7 03/17/19 02:00 105 16 81/60 (67) Nasal Cannula 3.00 03/17/19 01:25 Nasal Cannula 2.00 03/17/19 01:03 101 03/17/19 01:00 99 18 90/69 (76) Nasal Cannula 3.00 03/17/19 00:15 120 28 98/81 (87) Nasal Cannula 3.00 03/17/19 00:00 Nasal Cannula 3.00 03/17/19 00:00 36.9 03/16/19 23:00 105 24 95/74 (81) 100 Nasal Cannula 3.00 03/16/19 22:16 37.3 03/16/19 22:00 103 17 91/66 (74) 96 Nasal Cannula 3.00 03/16/19 21:33 38.0 03/16/19 21:00 114 18 95/74 (81) 100 Nasal Cannula 3.00 03/16/19 20:00 122 19 93/68 (76) 100 Nasal Cannula 3.00 03/16/19 20:00 38.1 03/16/19 20:00 Nasal Cannula 3.00 03/16/19 19:00 108 03/16/19 19:00 102 18 109/74 (86) 100 Nasal Cannula 3.00 03/16/19 18:00 126 26 83/56 (65) 100 Nasal Cannula 3.00 03/16/19 17:47 36.8 03/16/19 17:31 139 03/16/19 17:17 39.0 03/16/19 17:00 176 34 209/180 (190) 100 Nasal Cannula 3.00 03/16/19 16:27 115 16 103/60 100 Nasal Cannula 3.00 03/16/19 16:27 115 18 103/60 100 Nasal Cannula 03/16/19 16:20 99 Nasal Cannula 3.00 03/16/19 16:17 37.9 135 23 91/76 (81) 99 Nasal Cannula 3.00 03/16/19 13:15 37.2 116 16 78/50 (59) I & O 03/17/19 07:00 Intake Total 6587.64 ml Output Total 145 ml Balance 6442.64 ml Height & Weight Height: 5'7.00" Weight: 109lbs. oz. 49.708313pm; 18.00 BMI Method:Stated General Appearance: Chronically ill, Cachetic, Moderate Distress HEENT: No Scleral Icterus (L), No Scleral Icterus (R); Other (dry mucus membranes) Neck: Non Tender; No Lymphadenopathy (L), No Lymphadenopathy (R); Other (central line in place on right) Respiratory: Chest Non Tender, Rhonci (right base); No Wheezing; Other (tachypnea ) Cardiovascular: No JVD, No Murmur, Tachycardia Capillary Refill: Less Than 3 Seconds Extremity: Pedal Edema, Slow Capillary Refill, Swelling (2+ to just below calves) Neurologic/Psychiatric: Other (arouses to pain and speaks, otherwise will open eyes to verbal command but lethargic) Skin: Mottled; No Petechia, No Rash; Other (warm to touch) Results Lab Laboratory Tests 03/16/19 13:32 03/17/19 03:22 Assessment/Plan Assessment/Plan Septic Shock -Add solucortef -Pt is currently on levophed and vasopressin Acute worsening respiratory distress -Check ABG and echo UTI -Change abx to vanco/Zosyn secondary to worsening sepiss CAD s/p CABG Echo- pending COPD Currently off inhalers HTN Chronic Pancreatitis -Check Amylase lipase Chronic Pain IV Dilaudid for pain KENAN CARNEY DO Mar 17, 2019 05:42 POS
[2019-03-17] MEDS ORDERED: PHARMACY TO DOSE IV SCH (06:00)
[2019-03-17] MEDS ORDERED: POTASSIUM CL 10MEQ/50ML IVPB 50 ML IV SCH (06:00)
[2019-03-17] MEDS ORDERED: LACTATED RINGERS 1,000 ML IV SCH (06:00)
[2019-03-17] MEDS ORDERED: HYDROCORTISONE 100 MG/2 ML (Solu-CORTEF) VIAL IV SCH (06:00)
[2019-03-17] MEDS ORDERED: KCL 20 MEQ TAB (K-DUR) PO SCH (06:00)
[2019-03-17] MEDS ORDERED: MAGNESIUM 1 GM/100 ML IVPB 100 ML IV SCH (06:00)
[2019-03-17] MEDS ORDERED: PIPERACILLIN/TAZOBACTAM (BULK) 4.5 GM in NS (IVPB) 100 ML IV SCH ×2 (06:00→12:30)
[2019-03-17 06:15] LABS: AMYLASE 9 U/L (25-125); LIPASE < 4 U/L (8-78); PHOSPHORUS 3.5 MG/DL (2.3-4.7)
[2019-03-17] MEDS ORDERED: PIPERACILLIN/TAZO 4.5 GM VIAL (ZOSYN) IV ONE (06:16)
[2019-03-17] MEDS ORDERED: PIPERACILLIN/TAZOBACTAM (BULK) 4.5 GM in NS (IVPB) 100 ML IV NR (06:30)
[2019-03-17] MEDS ORDERED: ACETAMINOPHEN 325 MG SUPP (TYLENOL) PR PRN (07:00)
[2019-03-17] MEDS ORDERED: ACETAMINOPHEN 650 MG SUPP (TYLENOL) PR PRN (07:00)
[2019-03-17] MEDS ORDERED: LORazepam INJ 2 MG/ML (ATIVAN) VIAL ONE ×2 (07:04→11:26)
[2019-03-17] MEDS ORDERED: HYDROmorphone 2 MG/ML VIAL (DILAUDID) IV PRN ×2 (07:15→13:15)
[2019-03-17] MEDS ORDERED: LORazepam INJ 2 MG/ML (ATIVAN) VIAL IVP ONE (07:15)
[2019-03-17] MEDS ORDERED: DEXMEDETOMIDINE INJECTION 200 MCG in NS (IVPB) 50 ML IV SCH (07:15)
[2019-03-17] MEDS ORDERED: DEXMEDETOMIDINE INJECTION 1,000 MCG in NS (IVPB) 240 ML IV SCH (07:15)
--- NOTE | 2019-03-17 07:17 | NUR ---
VANCOMYCIN PHARMACY TO DOSE: ABW 49.5 KG, SCr 1.05, EST CrCl 47 VANCOMYCIN LOADING DOSE = 1,250 MG MAIN DOSE = 750 MG IV DAILY VANCOMYCIN TROUGH DUE 03/20/19 @ 07:00 IF TROUGH > 20 HOLD 03/20/19 07:30 DOSE
--- NOTE | 2019-03-17 07:19 | Diagnostic Imaging Report ---
PATIENT HISTORY: Septic shock. TECHNIQUE: Single frontal view of the chest. COMPARISON: 03/16/2019 FINDINGS: The tip of the right jugular line projects over the cavoatrial junction. Cardiac silhouette is normal in size. There is a calcified granuloma in the right lung base. Interstitial opacities appear mildly increased. Sternotomy wires and CABG changes are noted. No pneumothorax or pleural effusion is seen. IMPRESSION: Mildly increased interstitial opacities, may represent a mild edema. Dictated by: Dictated on workstation # [id number]
[2019-03-17 07:21] LABS: ABG BASE EXCESS -10.6 MMOL/L (-2.5-2.5); ABG OXYGEN SATURATION 23 % (94-100); ABG PCO2 51 MMHG (35-45); ABG TCO2 18.4 MMOL/L (21.0-31.0)
[2019-03-17 07:28] LABS: ABG PH 7.14 (7.37-7.43); ABG PO2 30 MMHG (79-93); ALLENS TEST YES-POS; INSPIRED O2 4; PATIENT TEMP 36.9; VENTILATOR NO
[2019-03-17] MEDS ORDERED: VANCOMYCIN 1250 MG/NS 250 ML IVPB IV NR ×2 (07:30)
[2019-03-17 08:11] LABS: ABG BASE EXCESS -15.9 MMOL/L (-2.5-2.5); ABG OXYGEN SATURATION 92 % (94-100); ABG PCO2 32 MMHG (35-45); ABG PO2 76 MMHG (79-93); ABG TCO2 12.3 MMOL/L (21.0-31.0)
[2019-03-17] MEDS ORDERED: NS IV 1000 ML 1,000 ML ONE (08:11)
[2019-03-17 08:13] LABS: ABG PH 7.16 (7.37-7.43); ALLENS TEST YES-POS; INSPIRED O2 5; PATIENT TEMP 35.8; VENTILATOR NO
--- NOTE | 2019-03-17 08:25 | NUR ---
DR CARNEY NOTIFIED OF ABG RESULTS. ORDER RECEIVED TO PLACE PT ON VAPOTHERM. ALSO REQUEST THAT THIS RT ALERT RN THAT HE IS PUTTING IN ORDERS FOR BICARB AT THIS TIME. [address] UPDATED ON DR CARNEY PLAN.
[2019-03-17] MEDS ORDERED: SODIUM BICARB 8.4% 50 MEQ/50 ML VIAL IV NR (08:30)
[2019-03-17] MEDS ORDERED: PANTOPRAZOLE 40 MG (PROTONIX) VIAL IV SCH (09:00)
[2019-03-17 09:26] LABS: BASOPHILS % (AUTO) 0 % (0-10); EOSINOPHILS % (AUTO) 0 % (0-10); HEMATOCRIT 30 % (40-54); HEMOGLOBIN 9.9 G/DL (13.3-17.7); LYMPHOCYTES # (AUTO) 0.8 X 10^3 (1.0-4.0); LYMPHOCYTES % (AUTO) 6 % (12-44); MEAN CORPUSCULAR HEMOGLOBIN 32 PG (25-34); MEAN CORPUSCULAR HGB CONC 33 G/DL (32-36); MEAN CORPUSCULAR VOLUME 98 FL (80-99); MEAN PLATELET VOLUME 10.3 FL (7.4-10.4); MONOCYTES # (AUTO) 0.4 X 10^3 (0.0-1.0); MONOCYTES % (AUTO) 3 % (0-12); NEUTROPHILS # (AUTO) 12.1 X 10^3 (1.8-7.8); NEUTROPHILS % (AUTO) 91 % (42-75); PLATELET COUNT 175 10^3/uL (130-400); WHITE BLOOD COUNT 13.3 10^3/uL (4.3-11.0)
[2019-03-17 09:37] LABS: BUN/CREATININE RATIO 15; CALCIUM 6.3 MG/DL (8.5-10.1); CARBON DIOXIDE 10 MMOL/L (21-32); CHLORIDE 110 MMOL/L (98-107); CREATININE SERUM 1.12 MG/DL (0.60-1.30); GFR ESTIMATED > 60; MAGNESIUM 1.6 MG/DL (1.6-2.4); PHOSPHORUS 4.8 MG/DL (2.3-4.7); POTASSIUM 4.6 MMOL/L (3.6-5.0); SODIUM 137 MMOL/L (135-145)
[2019-03-17 09:49] LABS: GLUCOSE 59 MG/DL (70-105)
[2019-03-17] MEDS ORDERED: NS IV SCH ×2 (10:00)
[2019-03-17] MEDS ORDERED: PHENYLEPHRINE IV SCH ×2 (10:00)
[2019-03-17 10:04] LABS: BAND NEUTROPHILS 42 %; LYMPHOCYTES % (MANUAL) 6 %; METAMYELOCYTES % 14 %; MONOCYTES % (MANUAL) 6 %; NEUTROPHILS % (MANUAL) 32 %
[2019-03-17 10:05] LABS: RBC MORPH NORMAL
--- NOTE | 2019-03-17 11:10 | Consultation-Cardiology ---
HPI-Cardiology Cardiology Consultation Date of Consultation 03/17/19 Date of Admission Time Seen by Provider: 10:00 Indication: hypotensive shock HPI 69 years old gentleman with extensive cardiac history, brought by his family to the emergency room with generalized weakness and fatigue, was unable to provide any history history was obtained by interviewing his daughter. He has history of coronary artery disease and CABG, diagnosed with sepsis and hypotensive shock, receiving IV fluid on multiple pressors, echo showed severe cardiomyopathy, I was called for cardiology evaluation. He denied any chest pain. No palpitation, has been having increasing weakness and dyspnea with minimal exertion which has been worsening recently. Home Medications & Allergies Allergies: Coded Allergies: morphine (Unverified Allergy, Mild, takes Hydromorphone at home, 03/17/19) Home Medication List Reviewed: Yes PPC-Kpvvul-Omqbng Hx Patient Social History Marital Status: Alcohol Use: Past History Recreational Drug Use: No Smoking Status: Current Everyday Smoker Type Used: Cigarettes Recent Foreign Travel: No Recent Infectious Disease Expo: No Recent Hopitalizations: No Immunizations Up To Date Date of Pneumonia Vaccine: Nov 17, 2016 Date of Influenza Vaccine: Feb 24, 2019 Past Medical History Discussed below Family Medical History Significant Family History: No Pertinent Family Hx Family Medical Hx Noncontributory Review of Systems-General Review of Systems Constitutional: see HPI, chills, fever, malaise, weakness EENTM: no symptoms reported Respiratory: cough, orthopnea, short of breath Cardiovascular: No chest pain, No edema Gastrointestinal: No abdominal pain, No nausea, No vomiting Genitourinary: no symptoms reported Musculoskeletal: joint pain, muscle pain, muscle stiffness, muscle weakness Skin: change in color; No lesions Psychiatric/Neurological: Denies Headache; Weakness All Other Systems Reviewed Negative Unless Noted: Yes Reviewed Test Results Reviewed Test Results Lab Laboratory Tests Test 03/16/19 13:32 03/16/19 14:30 03/16/19 15:30 03/16/19 16:25 Range/Units White Blood Count 5.4 4.3-11.0 10^3/uL Red Blood Count 4.07 L 4.35-5.85 10^6/uL Hemoglobin 13.3 13.3-17.7 G/DL Hematocrit 41 40-54 % Mean Corpuscular Volume 102 H 80-99 FL Mean Corpuscular Hemoglobin 33 25-34 PG Mean Corpuscular Hemoglobin Concent 32 32-36 G/DL Red Cell Distribution Width 16.3 H 10.0-14.5 % Platelet Count 230 130-400 10^3/uL Mean Platelet Volume 10.5 H 7.4-10.4 FL Neutrophils (%) (Auto) 75 42-75 % Lymphocytes (%) (Auto) 18 12-44 % Monocytes (%) (Auto) 6 0-12 % Eosinophils (%) (Auto) 0 0-10 % Basophils (%) (Auto) 1 0-10 % Neutrophils # (Auto) 4.0 1.8-7.8 X 10^3 Lymphocytes # (Auto) 1.0 1.0-4.0 X 10^3 Monocytes # (Auto) 0.3 0.0-1.0 X 10^3 Eosinophils # (Auto) 0.0 0.0-0.3 10^3/uL Basophils # (Auto) 0.0 0.0-0.1 10^3/uL Neutrophils % (Manual) 51 % Lymphocytes % (Manual) 21 % Monocytes % (Manual) 3 % Eosinophils % (Manual) 3 % Band Neutrophils 25 % Poikilocytosis MODERATE Stomatocytes MODERATE Sodium Level 140 135-145 MMOL/L Potassium Level 4.2 3.6-5.0 MMOL/L Chloride Level 105 98-107 MMOL/L Carbon Dioxide Level 15 L 21-32 MMOL/L Anion Gap 20 H 5-14 MMOL/L Blood Urea Nitrogen 19 H 7-18 MG/DL Creatinine 1.19 0.60-1.30 MG/DL Estimat Glomerular Filtration Rate > 60 BUN/Creatinine Ratio 16 Glucose Level 93 70-105 MG/DL Calcium Level 7.6 L 8.5-10.1 MG/DL Corrected Calcium 8.8 8.5-10.1 MG/DL Total Bilirubin 2.6 H 0.1-1.0 MG/DL Aspartate Amino Transf (AST/SGOT) 74 H 5-34 U/L Alanine Aminotransferase (ALT/SGPT) 54 0-55 U/L Alkaline Phosphatase 140 H 40-136 U/L Total Protein 4.8 L 6.4-8.2 GM/DL Albumin 2.5 L 3.2-4.5 GM/DL Urine Color YELLOW Urine Clarity CLEAR Urine pH 5 5-9 Urine Specific [place] 1.020 1.016-1.022 Urine Protein 2+ H NEGATIVE Urine Glucose (UA) NEGATIVE NEGATIVE Urine Ketones 1+ H NEGATIVE Urine Nitrite POSITIVE H NEGATIVE Urine Bilirubin 2+ H NEGATIVE Urine Urobilinogen 8 H NORMAL MG/DL Urine Leukocyte Esterase 1+ H NEGATIVE Urine RBC (Auto) 1+ H NEGATIVE Urine RBC RARE /HPF Urine WBC 2-5 /HPF Urine Squamous Epithelial Cells 0-2 /HPF Urine Renal Epithelial Cells 0-2 /HPF Urine Crystals NONE /LPF Urine Bacteria MODERATE H /HPF Urine Casts NONE /LPF Urine Mucus SMALL H /LPF Urine Culture Indicated YES Lactic Acid Level 6.38 *H 5.75 *H 0.50-2.00 MMOL/L Prothrombin Time 20.1 H 12.2-14.7 SEC INR Comment 1.6 H 0.8-1.4 Activated Partial Thromboplast Time 32 24-35 SEC Test 03/16/19 17:05 03/16/19 19:10 03/16/19 21:25 03/16/19 22:45 Range/Units Blood Gas Puncture Site LT RAD Blood Gas Patient Temperature 37.9 Arterial Blood pH 7.38 7.37-7.43 Arterial Blood Partial Pressure CO2 31 L 35-45 MMHG Arterial Blood Partial Pressure O2 73 L 79-93 MMHG Arterial Blood HCO3 18 L 23-27 MMOL/L Arterial Blood Total CO2 18.5 L 21.0-31.0 MMOL/L Arterial Blood Oxygen Saturation 94 94-100 % Arterial Blood Base Excess -6.3 L -2.5-2.5 MMOL/L Kwaku Test YES-POS Blood Gas Ventilator Setting NO Blood Gas Inspired Oxygen 3 L Lactic Acid Level 6.00 *H 5.19 *H 0.50-2.00 MMOL/L Stool Occult Blood Immunoassay POSITIVE H NEGATIVE Test 03/17/19 03:22 03/17/19 07:15 03/17/19 08:05 03/17/19 08:38 Range/Units White Blood Count 11.7 H 13.3 H 4.3-11.0 10^3/uL Red Blood Count 3.00 L 3.07 L 4.35-5.85 10^6/uL Hemoglobin 9.6 #L 9.9 L 13.3-17.7 G/DL Hematocrit 29 L 30 L 40-54 % Mean Corpuscular Volume 95 98 80-99 FL Mean Corpuscular Hemoglobin 32 32 25-34 PG Mean Corpuscular Hemoglobin Concent 34 33 32-36 G/DL Red Cell Distribution Width 15.6 H 16.0 H 10.0-14.5 % Platelet Count 171 175 130-400 10^3/uL Mean Platelet Volume 10.2 10.3 7.4-10.4 FL Neutrophils (%) (Auto) 91 H 91 H 42-75 % Lymphocytes (%) (Auto) 5 L 6 L 12-44 % Monocytes (%) (Auto) 4 3 0-12 % Eosinophils (%) (Auto) 0 0 0-10 % Basophils (%) (Auto) 0 0 0-10 % Neutrophils # (Auto) 10.6 H 12.1 H 1.8-7.8 X 10^3 Lymphocytes # (Auto) 0.6 L 0.8 L 1.0-4.0 X 10^3 Monocytes # (Auto) 0.5 0.4 0.0-1.0 X 10^3 Eosinophils # (Auto) 0.0 0.0 0.0-0.3 10^3/uL Basophils # (Auto) 0.0 0.0 0.0-0.1 10^3/uL Sodium Level 140 137 135-145 MMOL/L Potassium Level 3.5 L 4.6 3.6-5.0 MMOL/L Chloride Level 109 H 110 H 98-107 MMOL/L Carbon Dioxide Level 17 L 10 L 21-32 MMOL/L Anion Gap 14 17 H 5-14 MMOL/L Blood Urea Nitrogen 19 H 17 7-18 MG/DL Creatinine 1.05 1.12 0.60-1.30 MG/DL Estimat Glomerular Filtration Rate > 60 > 60 BUN/Creatinine Ratio 18 15 Glucose Level 49 *L 59 *L 70-105 MG/DL Lactic Acid Level 5.07 *H 11.97 *H 0.50-2.00 MMOL/L Calcium Level 6.7 L 6.3 L 8.5-10.1 MG/DL Corrected Calcium 8.5 8.5-10.1 MG/DL Phosphorus Level 3.5 4.8 H 2.3-4.7 MG/DL Magnesium Level 0.9 *L 1.6 1.6-2.4 MG/DL Total Bilirubin 1.8 H 0.1-1.0 MG/DL Aspartate Amino Transf (AST/SGOT) 55 H 5-34 U/L Alanine Aminotransferase (ALT/SGPT) 37 0-55 U/L Alkaline Phosphatase 86 40-136 U/L Total Protein 3.2 L 6.4-8.2 GM/DL Albumin 1.7 L 3.2-4.5 GM/DL Amylase Level 9 L 25-125 U/L Lipase < 4 L 8-78 U/L Serum Alcohol < 10 <10 MG/DL Blood Gas Puncture Site right radial L RADIAL Blood Gas Patient Temperature 36.9 35.8 Arterial Blood pH 7.14 *L 7.16 *L 7.37-7.43 Arterial Blood Partial Pressure CO2 51 H 32 L 35-45 MMHG Arterial Blood Partial Pressure O2 30 *L 76 L 79-93 MMHG Arterial Blood HCO3 17 *L 11 *L 23-27 MMOL/L Arterial Blood Total CO2 18.4 L 12.3 L 21.0-31.0 MMOL/L Arterial Blood Oxygen Saturation 23 L 92 L 94-100 % Arterial Blood Base Excess -10.6 L -15.9 L -2.5-2.5 MMOL/L Kwaku Test YES-POS YES-POS Blood Gas Ventilator Setting NO NO Blood Gas Inspired Oxygen 4 5 Neutrophils % (Manual) 32 % Lymphocytes % (Manual) 6 % Monocytes % (Manual) 6 % Metamyelocytes % 14 % Band Neutrophils 42 % Blood Morphology Comment NORMAL Physical Exam Physical Exam Vital Signs Vital Signs - First Documented 03/16/19 03/16/19 03/17/19 13:15 16:17 08:37 Temp 37.2 Pulse 116 Resp 16 B/P (MAP) 78/50 (59) Pulse Ox 99 O2 Delivery Nasal Cannula O2 Flow Rate 3.00 FiO2 40 Capillary Refill : Less Than 3 Seconds Height, Weight, BMI Height: 5'7.00" Weight: 109lbs. oz. 49.990917ev; 18.00 BMI Method:Stated General Appearance: Chronically ill, Cachetic, Severe Distress HEENT: No Scleral Icterus (L), No Scleral Icterus (R); Other (dry mucus membranes) Neck: Non Tender; No Lymphadenopathy (L), No Lymphadenopathy (R); Other (centra l line in place on right) Respiratory: Chest Non Tender, Decreased Breath Sounds, Rhonci (right base); No Wheezing; Other (tachypnea ) Cardiovascular: No JVD, Systolic Murmur, Gallop/S3, Tachycardia Gastrointestinal: Normal Bowel Sounds; No Distended; Guarding; No Rebound; Tenderness (diffuse) Genital/Rectal: Other (ceja in place, scant urine) Back: Decreased Range of Motion; No Vertebral Tenderness Extremity: Pedal Edema, Slow Capillary Refill, Swelling (2+ to just below calves) Neurologic/Psychiatric: Other (arouses to pain and speaks, otherwise will open eyes to verbal command but lethargic) Skin: Mottled; No Petechia, No Rash; Other (warm to touch) A/P-Cardiology Admission Diagnosis Hypotensive shock Congestive heart failure, acute on chronic left ventricular systolic dysfunction Coronary artery disease Tobaccoism Assessment/Plan Hypotensive shock, multi-factorial, multiorgan failure, sepsis and congestive heart failure. Receiving multiple pressors and IV fluid. Continue with aggressive management and monitor closely Congestive heart failure, acute on chronic left ventricular systolic dysfunction, ejection fraction 10 percent, probably ischemic in nature, discussed treatment options with the daughter. Currently requesting conservative measures. Coronary artery disease, history of CABG 4 done in 2004, has been following with a mechanical detailer at the [facility]. No recent workup was done, probably has advanced multivessel coronary artery disease. 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 Acute on chronic respiratory failure. Severely dyspneic secondary to sepsis and multiorgan failure Urinary tract infection Sepsis Overall poor prognosis, discussed treatment options with the family, at this point they are requesting conservative measures, no intervention, the patient is DO NOT RESUSCITATE/DO NOT INTUBATE Clinical Quality Measures DVT/VTE Risk/Contraindication: Risk Factor Score Per Nursin RFS Level Per Nursing on Admit: 4+=Very High SONMA MARQUEZ MD Mar 17, 2019 11:09
--- NOTE | 2019-03-17 11:13 | Diagnostic Imaging Report ---
INDICATION: Pancreatitis and renal failure. No priors. A substantial amount of shadowing bowel gas throughout the abdomen limiting acoustical windows. The partially visualized liver measured at least 20 cm but appeared nonfocal. The gallbladder unremarkable. No intrahepatic biliary dilatation. The extrahepatic duct was obscured. The pancreas is obscured. The spleen measured 8.4 cm and appeared unremarkable. Much of the aorta and IVC are obscured by gas. Kidneys appeared unobstructed within normal limits of size. There is abdominal ascites noted. Limited windows to what is likely some thickening of the distal stomach and duodenum. IMPRESSION: Substantial limitations owing to shadowing bowel gas. There is abdominal ascites much of the viscera unobscured. There is a suggestion of thickening of the [place] of the distal stomach and duodenum and proximal duodenum. No visualized loculated collection. No appreciable biliary dilatation or hydronephrosis. Dictated by: Dictated on workstation # [id number]
--- NOTE | 2019-03-17 11:30 | NUR ---
Pastoral care visit, pt appears in the dying process, large family gathered, I obtained more chairs for family. Family was standoffish and quiet declined when I asked if they would like me to pray. I offered support and continued availability.
--- NOTE | 2019-03-17 11:59 | NUR ---
Palliative care RN spoke to Dr. Rudd about this patient. When I went to see patient he was on Vapotherm and he appeared to be in the dying process with near "fish out of water" respirations. She was cyanotic, mottled in his whole body with underlying waxy appearance. Grand-daughter is at bedside and patient was minimally alert and attempted to answer questions. He denied pain but kept putting his hand to his mouth.. I took this as a sign to perform oral care. Spoke to about my immediate thoughts on this first encounter. My thoughts are that he is in the dying process. His body is shutting down from all appearances. She is understanding and tearful but agrees that this he is likely not going to get better and would like to make hi CCMO once all family has arrived to the room.
--- NOTE | 2019-03-17 12:18 | NUR ---
Returned to see patient. He still has Vapotherm on and is I have suggested tot he RN that this be changed to a regular NC even though it is not needed at all. Patient is not responsive any longer. Remains mottled over his entire body. Spoke to Dr. Rudd who reports that he talked to the RN regarding patients transition to CCMO. He is in full support and agrees that the patient does not need Vapotherm while in the dying process.
[2019-03-17] MEDS ORDERED: LORazepam INJ 2 MG/ML (ATIVAN) VIAL IVP PRN (12:30)
[2019-03-17] MEDS ORDERED: ARTIFICAL TEARS 0.4 ML UNIT DOSE (REFRESH PLUS) OU PRN (12:30)
[2019-03-17] MEDS ORDERED: ONDANSETRON 4 MG/2 ML (SDV) Z0FRAN IVP PRN (12:30)
[2019-03-17] MEDS ORDERED: PROMETHAZINE INJ 25 MG/ML (PHENERGAN) AMP IVP PRN (12:30)
[2019-03-17] MEDS ORDERED: SALIVA STIMULANT MOUTH SPRAY (BIOTENE) 1.5 OZ MM PRN (12:30)
[2019-03-17] MEDS ORDERED: GLYCOPYRROLATE 0.2 MG/ML (ROBINUL) 2 ML VIAL IV PRN (12:30)
--- NOTE | 2019-03-17 13:38 | NUR ---
Received consult for MST score. Note pt is currently on comfort care measures. Pt is not appropriate for interventions at this time. If pt status changes, recommend for re-consult. Ac Donnelly MS, RD, LD O: Ext 133 C: [phone]
[2019-03-17] MEDS ORDERED: cefTRIAXone 1,000 MG/SWFI 10 ML IV PUSH IV SCH ×2 (15:00)
--- NOTE | 2019-03-17 15:05 | NUR ---
PT AT 1448, NO PULSE VERIFIED VERIFIED BY THIS RN. THIS RN NOTIFIED HANNA GONZALEZ PALLIATIVE CARE NURSE AND HOME OF PT . [facility] [place] [facility] [place], [place] [facility]. CONTACT NUMBER FOR [place] IS [phone].
--- NOTE | 2019-03-17 15:48 | Discharge Summary ---
Discharge Summary Hospital Course Problems/Dx: (1) Cardiogenic shock Status: Acute (2) Septic shock Status: Acute (3) CAD (coronary artery disease) Qualifiers: Qualified Codes: I25.810 - Atherosclerosis of coronary artery bypass graft(s) without angina pectoris (4) COPD (chronic obstructive pulmonary disease) (5) Counseling regarding end of life decision making (6) Essential (primary) hypertension (7) Non-insulin dependent type 2 diabetes mellitus (8) Tobacco abuse (9) UTI (urinary tract infection) (10) Chronic pancreatitis (11) Chronic pain Hospital Course Date of Admission: Mar 16, 2019 at 15:53 Admission Diagnosis : Shock Family Physician/Provider: YomairaLocal Physician Date of Discharge: 03/17/19 Discharge Diagnosis: Septic shock due to gram-negative bacteremia, cardiogenic shock due to coronary artery disease Hospital Course: Andrzej Ridley was a 69yoM with H CAD s/p CABG, chronic pancreatitis, who presented with shock. He was found to be septic with gram-negative yo bacteremia. He was treated with IV antibiotics, fluids, and pressors. An echocardiogram revealed a reduced ejection fraction of 5-10%. After a discussion with his family, it was decided to transition to comfort measures only status. Time of was 1448. Labs and Pending Lab Test: Laboratory Tests 03/16/19 16:25: Lactic Acid Level 5.75*H 03/16/19 17:05: Blood Gas Puncture Site LT RAD, Blood Gas Patient Temperature 37.9, Arterial Blood pH 7.38, Arterial Blood Partial Pressure CO2 31L, Arterial Blood Partial Pressure O2 73L, Arterial Blood HCO3 18L, Arterial Blood Total CO2 18.5L, Arterial Blood Oxygen Saturation 94, Arterial Blood Base Excess -6.3L, Kwaku Test YES-POS, Blood Gas Ventilator Setting NO, Blood Gas Inspired Oxygen 3 L 03/16/19 19:10: Lactic Acid Level 6.00*H 03/16/19 21:25: Lactic Acid Level 5.19*H 03/16/19 22:45: Stool Occult Blood Immunoassay POSITIVEH 03/17/19 03:22: White Blood Count 11.7H, Red Blood Count 3.00L, Hemoglobin 9.6#L, Hematocrit 29L , Mean Corpuscular Volume 95, Mean Corpuscular Hemoglobin 32, Mean Corpuscular Hemoglobin Concent 34, Red Cell Distribution Width 15.6H, Platelet Count 171, Mean Platelet Volume 10.2, Neutrophils (%) (Auto) 91H, Lymphocytes (%) (Auto) 5L , Monocytes (%) (Auto) 4, Eosinophils (%) (Auto) 0, Basophils (%) (Auto) 0, Neutrophils # (Auto) 10.6H, Lymphocytes # (Auto) 0.6L, Monocytes # (Auto) 0.5, Eosinophils # (Auto) 0.0, Basophils # (Auto) 0.0, Sodium Level 140, Potassium Level 3.5L, Chloride Level 109H, Carbon Dioxide Level 17L, Anion Gap 14, Blood Urea Nitrogen 19H, Creatinine 1.05, Estimat Glomerular Filtration Rate > 60, BUN/Creatinine Ratio 18, Glucose Level 49*L, Lactic Acid Level 5.07*H, Calcium Level 6.7L, Corrected Calcium 8.5, Phosphorus Level 3.5, Magnesium Level 0.9*L, Total Bilirubin 1.8H, Aspartate Amino Transf (AST/SGOT) 55H, Alanine Aminotransferase (ALT/SGPT) 37, Alkaline Phosphatase 86, Total Protein 3.2L, Albumin 1.7L, Amylase Level 9L, Lipase < 4L, Serum Alcohol < 10 03/17/19 07:15: Blood Gas Puncture Site right radial, Blood Gas Patient Temperature 36.9, Arterial Blood pH 7.14*L, Arterial Blood Partial Pressure CO2 51H, Arterial Blood Partial Pressure O2 30*L, Arterial Blood HCO3 17*L, Arterial Blood Total CO2 18.4L, Arterial Blood Oxygen Saturation 23L, Arterial Blood Base Excess - 10.6L, Kwaku Test YES-POS, Blood Gas Ventilator Setting NO, Blood Gas Inspired Oxygen 4 03/17/19 08:05: Blood Gas Puncture Site L RADIAL, Blood Gas Patient Temperature 35.8, Arterial Blood pH 7.16*L, Arterial Blood Partial Pressure CO2 32L, Arterial Blood Partial Pressure O2 76L, Arterial Blood HCO3 11*L, Arterial Blood Total CO2 12.3L, Arterial Blood Oxygen Saturation 92L, Arterial Blood Base Excess -15.9L, Kwaku Test YES-POS, Blood Gas Ventilator Setting NO, Blood Gas Inspired Oxygen 5 03/17/19 08:38: White Blood Count 13.3H, Red Blood Count 3.07L, Hemoglobin 9.9L, Hematocrit 30L, Mean Corpuscular Volume 98, Mean Corpuscular Hemoglobin 32, Mean Corpuscular Hemoglobin Concent 33, Red Cell Distribution Width 16.0H, Platelet Count 175, Mean Platelet Volume 10.3, Neutrophils (%) (Auto) 91H, Lymphocytes (%) (Auto) 6L , Monocytes (%) (Auto) 3, Eosinophils (%) (Auto) 0, Basophils (%) (Auto) 0, Neutrophils # (Auto) 12.1H, Lymphocytes # (Auto) 0.8L, Monocytes # (Auto) 0.4, Eosinophils # (Auto) 0.0, Basophils # (Auto) 0.0, Neutrophils % (Manual) 32, Lymphocytes % (Manual) 6, Monocytes % (Manual) 6, Metamyelocytes % 14, Band Neutrophils 42, Blood Morphology Comment NORMAL, Sodium Level 137, Potassium Level 4.6, Chloride Level 110H, Carbon Dioxide Level 10L, Anion Gap 17H, Blood Urea Nitrogen 17, Creatinine 1.12, Estimat Glomerular Filtration Rate > 60, BUN/Creatinine Ratio 15, Glucose Level 59*L, Lactic Acid Level 11.97*H, Calcium Level 6.3L, Phosphorus Level 4.8H, Magnesium Level 1.6 Microbiology 03/16/19 Blood Culture - Preliminary, Resulted Gram Negative Yo See Comments 03/16/19 C. difficile GDH Antigen & Toxins - Final, Complete 03/16/19 Influenza Types A,B Antigen (ESPERANZA) - Final, Complete Home Meds Active Reported Creon 6,000 Units Capsule (Lipase/Amylase/Protease) 1 Ea Cap 1 Ea PO Aspir 81 (Aspirin) 81 Mg Tablet. 81 Mg PO Prilosec (Omeprazole Magnesium) 2.5 Mg Suspdr.pkt 2.5 Mg PO BID Dilaudid (Hydromorphone HCl) 4 Mg Tablet 4 Mg PO DAILY PRN 7 Days Lisinopril 5 Mg Tablet 5 Mg PO DAILY Glimepiride 4 Mg Tablet 4 Mg PO Metformin HCl 1,000 Mg Tablet 1,000 Mg PO BID WITH MEALS Assessment/Pt Instructions Patient . Time of 1448 on 03/17/2019. Discharge Planning: <30 minutes discharge planning Discharge Physical Examination Vital Signs Vital Signs Date Time Temp Pulse Resp B/P (MAP) Pulse Ox O2 Delivery O2 Flow Rate FiO2 03/17/19 11:00 128 19 93/75 (81) Nasal Cannula 3.00 03/17/19 08:37 40 03/17/19 03:38 36.7 03/17/19 01:25 General Appearance: No Apparent Distress Respiratory: No Respiratory Distress Cardiovascular: No Edema Gastrointestinal: No Distended Extremity: Normal Inspection, No Pedal Edema Skin: Cool, Cyanosis, Mottled Neurologic/Psychiatric: No Alert Allergies: Coded Allergies: morphine (Unverified Allergy, Mild, takes Hydromorphone at home, 03/17/19) Discharge Summary Date of Admission Mar 16, 2019 at 15:53 Date of Discharge Discharge Date: Mar 17, 2019 Discharge Time: 14:48 Admission Diagnosis Septic Shock Consults/Procedures Consulations Cardiology, Pulmonology Comfort Measures/ End of Life Care: Comfort Measures Advance Care discuss with: family member (s) Plan: identified end-of-life goals Cardiopulmonary Arrest: Asystole Date of : Mar 17, 2019 Time of : 14:48 Discharge Diagnosis Septic shock due to gram-negative yo bacteremia, cardiogenic shock due to coronary artery disease (1) Cardiogenic shock Status: Acute (2) Septic shock Status: Acute (3) CAD (coronary artery disease) Qualifiers: Qualified Codes: I25.810 - Atherosclerosis of coronary artery bypass graft(s) without angina pectoris (4) COPD (chronic obstructive pulmonary disease) (5) Counseling regarding end of life decision making (6) Essential (primary) hypertension (7) Non-insulin dependent type 2 diabetes mellitus (8) Tobacco abuse (9) UTI (urinary tract infection) (10) Chronic pancreatitis (11) Chronic pain Clinical Quality Measures DVT/VTE Risk/Contraindication: Risk Factor Score Per Nursin RFS Level Per Nursing on Admit: 4+=Very High BRISSA COUGHLIN MD Mar 17, 2019 15:44 POS
--- NOTE | 2019-03-17 19:15 | NUR ---
[facility]. BODY RELEASED TO HOME. RELEASE SIGNED.
[2019-03-18] MEDS ORDERED: VANCOMYCIN 750 MG/NS 250 ML IVPB IV SCH ×2 (07:30)
[2019-03-20] MEDS ORDERED: TROUGH ORDER-PHARMACY XX NR (07:00)
== END 2019-03-17 19:00 | disposition expired | DRG 871 ==
LOC: EDUNIT# 13:10 → ER 13:11 → ICU 15:53
PROVIDERS: ADMIT Family Medicine; ATTEND Family Medicine
PROC: 02HV33Z Insertion of Infusion Device into Superior Vena Cava, Percutaneous Approach (ICD-10-PCS; principal; 2019-03-16)
DX: A41.50 Gram-negative sepsis, unspecified (principal); R65.21 Severe sepsis with septic shock; N39.0 Urinary tract infection, site not specified; I11.0 Hypertensive heart disease with heart failure; I50.23 Acute on chronic systolic (congestive) heart failure; J96.20 Acute and chronic respiratory failure, unspecified whether with hypoxia or hypercapnia; I42.9 Cardiomyopathy, unspecified; Z66 Do not resuscitate; Z51.5 Encounter for palliative care; R64 Cachexia; I25.810 Atherosclerosis of coronary artery bypass graft(s) without angina pectoris; K86.1 Other chronic pancreatitis; J44.9 Chronic obstructive pulmonary disease, unspecified; E11.9 Type 2 diabetes mellitus without complications; G89.29 Other chronic pain; M54.9 Dorsalgia, unspecified; M79.661 Pain in right lower leg; M79.662 Pain in left lower leg; R53.1 Weakness; F17.210 Nicotine dependence, cigarettes, uncomplicated; R29.6 Repeated falls; Z95.1 Presence of aortocoronary bypass graft; Z95.5 Presence of coronary angioplasty implant and graft; Z79.84 Long term (current) use of oral hypoglycemic drugs; Z79.82 Long term (current) use of aspirin
CPT/HCPCS: 36415; 36600; 51702; 70450; 71045; 72170; 76700; 80048; 80053; 80320; 81000; 82150; 82274; 82805; 82962; 83605; 83690; 83735; 84100; 85007; 85025; 85027; 85610; 85730; 87015; 87040; 87045; 87046; 87081; 87088; 87186; 87324; 87449; 87804; 87899; 93005; 93306; 94640; 96361; 96365; 96366; 96375; 99291; 99292